=== PATIENT | female | born 1990 | race Two or more races ===

== ENCOUNTER 2023-05-24 13:18 | Outpatient (CLI) | payer OTHER | END 2023-05-24 13:46 | disposition home or self-care (01) | LOC: RAD 13:18 | DX: N64.9 Disorder of breast, unspecified (principal); Z13.1 Encounter for screening for diabetes mellitus; Z13.220 Encounter for screening for lipoid disorders; Z13.29 Encounter for screening for other suspected endocrine disorder; Z12.11 Encounter for screening for malignant neoplasm of colon; Z11.9 Encounter for screening for infectious and parasitic diseases, unspecified; Z13.21 Encounter for screening for nutritional disorder; J45.909 Unspecified asthma, uncomplicated ==